=== PATIENT | male | born 1990 | race Caucasian/White ===

== ENCOUNTER 2017-01-22 13:08 | Emergency (ER) | payer BC ==
--- NOTE | ~2017-01-22 | CR72 ---
[facility] A Service of [facility] & [facility] RADIOLOGY TEXT RESULTS PATIENT: CHRISTA PÉREZ LOCATION: [facility] : [birth year] UNIT #: [id number] AGE: [address]: Zheng Tobar DO SEX: M ORDER DR: [id number] [facility] [address] [place], [place] [address] [id number] E MR#: [id number] Acc #: [id number] NAME: CHRISTA PÉREZ : 1990 SEX: M STUDY DATE/TIME: 01/22/2017 13:30 UNIT: [facility] ROOM: STUDY DESCRIPTION: CR Chest Single View Portable Attending Physician: Zheng Tobar D.O. Ordering Physician: Zheng Tobar D.O. Primary Care Physician: No Primary Care Physician MEDICAL IMAGING REPORT This report is preliminary unless electronic signature is present EXAM Single view portable chest, 01/22/17 HISTORY Overdose today. Mild congestion, Heroin OD. FINDINGS AP radiograph of the chest was presented. Lungs well inflated. No evidence of acute pulmonary disease. No pleural effusion or pneumothorax. Heart and mediastinum are normal in size and contour. The bony structures are unremarkable. Dictated by... Mark Acosta M.D. THIS IS AN ELECTRONICALLY VERIFIED REPORT Mark Acosta M.D. at 01/23/2017 8:13 AM REECE/gilberto TD: 01/22/2017 21:27 JOB #: [id number] MEDICAL IMAGING REPORT Page 1 of 1 COPY
== END 2017-01-22 16:37 | disposition home or self-care (01) ==
LOC: CED 13:08
DX: T40.1X1A Poisoning by heroin, accidental (unintentional), initial encounter (principal)
CPT/HCPCS: 71010; 99284; J2405